=== PATIENT | male | born 1975 ===

== ENCOUNTER 2018-03-06 05:51 | Inpatient (IN) | payer OTHER ==
[2018-02-14 11:51] VITALS: BMI 27.4
--- NOTE | 2018-03-06 06:17 | HP ---
HISTORY OF PRESENT ILLNESS: This is a 42-year-old individual, injured in an on-job accident that occurred back in 06/2016. He fell off of the top of a printer landing on his back. Since then, he has been suffering severe low back pain. There is some radiation to the left buttock and occasionally into the popliteal fossa. He notes that increased sitting or walking, twisting, lifting exacerbate his pain. Valsalva maneuvers trigger his leg pain. He has a baseline level of pain as 7 on a 0 to 10 scale. PAST MEDICAL HISTORY: Otherwise negative. PAST SURGICAL HISTORY: No prior surgery. ALLERGIES: NONE. MEDICATION: Not taking any medication. SOCIAL HISTORY: No smoking. PHYSICAL EXAMINATION: NEUROLOGIC: He has 5/5 strength throughout. Sensory exam is grossly within normal limits. Straight leg raising is negative on the right; on the left, it produces typical buttock pain at 30 degrees. He has tenderness in the lower lumbar spine. His range of motion is normal in extension, but markedly limited flexion. Bilateral twisting is limited. His baseline gait is within normal limits. DIAGNOSTIC DATA: MRI of the LS spine documented very impressive annular tear at the L4-5 approximately 1 cm in length. The disc is collapsed and desiccated . He has a significant annular tear associated with a large left-sided herniation directly impacting the left S1 nerve root. I went over the situation with Mr. Ortiz over couple of office visits through a assisted living assistant. I went over the pathology of his MRI. He clearly has failed conservative treatment. We discussed the options microdiscectomy versus two-level fixation infusion. I went over the nature of the procedure and the rationale behind it, the details, potential risks, complications, realistic chance of excessive recovery time, long-term outlook. I answered all of his questions. He fully understood the above and elected to proceed with the two-level fixation infusion, which he is now being admitted for. Dennis Ventura MD
[2018-03-06] MEDS ORDERED: Absorbable Gelatin Sponge Size 100 ONE ×3 (07:24→08:36)
[2018-03-06] MEDS ORDERED: Bupivacaine HCl 0.5% PF (30 ml) Inj ONE (07:25)
[2018-03-06] MEDS ORDERED: cefTRIAXone IV 1 gm in Dextros 0 ML IVPB ONE (07:26)
[2018-03-06] MEDS ORDERED: Lidocaine/Epinephrine 1% 1:100000 10 ML IJ ONE (07:26)
[2018-03-06] MEDS ORDERED: Thrombin Topical 5,000 Int Units Spray Kit ONE (07:26)
[2018-03-06] MEDS ORDERED: Bacitracin 50,000 UNIT in Sodium Chloride 0.9% Irrig 1,000 ML IR SCH (07:30)
[2018-03-06] MEDS ORDERED: Propofol 10 mg/ml Inj (20 ML) ONE (07:33)
[2018-03-06] MEDS ORDERED: Midazolam 2 MG/2 ML VIAL ONE (07:33)
[2018-03-06] MEDS ORDERED: Bacitracin Ointment 30 GM TUBE ONE (07:35)
[2018-03-06] MEDS ORDERED: Succinylcholine Chloride 20 mg/ml Syr (5 ml) IV ONE (07:35)
[2018-03-06] MEDS ORDERED: Sodium Chloride 0.9% 20 ML IV ONE (07:35)
[2018-03-06] MEDS ORDERED: Propofol 10 mg/ml 1,000 MG/100 ML VIAL ONE ×3 (07:44→11:05)
[2018-03-06] MEDS ORDERED: ceFAZolin IV 1 gm in Dextrose 2 GM/100 ML BAG IVPB ONE (08:04)
[2018-03-06] MEDS: Bupivacaine Liposomal Inj 20 ml INFIL ONE ×2 (09:18→12:06)
[2018-03-06] MEDS ORDERED: HYDROmorphone 0.5 mg/0.5 ml ISec IVP PRN (12:57)
[2018-03-06] MEDS ORDERED: Lactated Ringer's 1,000 ML IV ONE ×2 (13:44→16:35)
--- NOTE | 2018-03-06 16:24 | RAD ---
PROCEDURE: HISTORY: As Above COMPARISON: None TECHNIQUE: Total fluoroscopic time utilized during the procedure: 54.2 seconds. Total dose 0.29566 mGy cm squared FINDINGS: Submitted images from the current procedure: 4 Please refer to the physician's notes performing the procedure. IMPRESSION: Less than 1 hour fluoroscopic time utilized during performance of the procedure
--- NOTE | 2018-03-06 18:50 | MRI ---
PROCEDURE: MR LUMBAR SPINE WITHOUT CONTRAST HISTORY: NUMBNESS OF CINTHYA LOWER EXTREMITIES COMPARISON: None available. TECHNIQUE: Multiecho multiplanar sequences were performed through the lumbar spine without the use of intravenous contrast. FINDINGS: Normal lumbar lordosis. Vertebral body heights are preserved. Marrow signal unremarkable. Conus medullaris appears normal in intrinsic signal terminating at at the level of L1. PA seen to be status post bilateral L4 and L5 laminectomies with transpedicular screws and interconnecting rods placed consecutively from L4-S1 inclusively. No interval spondylolisthesis with postoperative seroma/hematoma at the posterior paraspinal soft tissues at L4 and L5. Intervertebral fusion at L4-5 and L5-S1 is also apparent. Fluid compresses the thecal sac at the L4 and L5 levels [id number]. Note is made of intrathecal gas scattered from T12 down to the L4-5 level anteriorly as well as posteriorly. These foci are dark across all sequences and represent air in nondependent intrathecal locations including along the dorsal surface of the conus and filum terminale. Central canal is somewhat distorted by these gas bubbles but no bony or soft tissue related delete stenosis is appreciated overall the inferior T12 level down to S1. No significant neural foraminal stenosis as imaged. Transpedicular screws limit evaluation of the L4-L5 neural foramina somewhat, due to dephasing artifact. OTHER FINDINGS: None. IMPRESSION: Status post bilateral L4 and L5 laminectomies with intervertebral fusion L4 and L5. Postoperative changes are seen at the operative site impressing the thecal sac [id number] primarily at the L4-L5 levels. Multifocal intrathecal gas is identified variably in the visualized inferior thoracolumbar spinal canal without prominent epidural related stenosis appreciated. Please see discussion above. Follow-up clinical an CT or MRI recommended. Findings discussed with Dr. Ventura 03/06/2018 6:30 p.m..
[2018-03-07] MEDS: Lactated Ringer's 1,000 ML IV SCH ×5 (02:30→19:00)
[2018-03-07] MEDS ORDERED: Pneumococcal 23-Valent Vaccine IM ONE (10:20)
--- NOTE | 2018-03-07 14:36 | CP.PCM.PN ---
Subjective - Date & Time of Evaluation Date of Evaluation: 03/07/18 Time of Evaluation: 09:00 - Subjective Subjective: POD 1 ? 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 Objective - Vital Signs/Intake and Output Vital Signs (last 24 hours): Temp Pulse Resp BP Pulse Ox 98.0 F 77 18 103/63 99 03/07/18 10:17 03/07/18 12:33 03/07/18 10:17 03/07/18 10:17 03/07/18 12:33 Intake and Output: 03/07/18 03/07/18 06:59 18:59 Intake Total 2200 Output Total 1650 Balance 550 - Medications Medications: Current Medications Acetaminophen (Tylenol 325mg Tab) 650 mg PO Q6 PRN PRN Reason: Fever >100.4 F Docusate Sodium (Colace) 100 mg PO BID [facility] [place] Last Admin: 03/07/18 10:41 Dose: 100 mg Ferrous Sulfate (Feosol) 325 mg PO TID [facility] [place] Last Admin: 03/07/18 13:57 Dose: 325 mg Hydromorphone/Sodium Chloride (Dilaudid Clinical Sociologist) 6 mg IV Q4H PRN; Protocol PRN Reason: Pain, severe (8-10) Last Admin: 03/06/18 15:20 Dose: 6 mg Lactated Ringer's (Lactated Ringer's) 1,000 mls @ 100 mls/hr IV .Q10H [facility] [place] Last Admin: 03/07/18 13:52 Dose: 100 mls/hr Ondansetron HCl (Zofran Inj) 4 mg IVP Q8H PRN PRN Reason: Nausea/Vomiting Pneumococcal Polyvalent Vaccine (Pneumovax 23 Vaccine) 0.5 ml IM .ONCE ONE Stop: 03/08/18 12:01
[2018-03-08] MEDS: Lactated Ringer's 1,000 ML IV SCH ×3 (06:22→12:42)
--- NOTE | 2018-03-08 08:33 | OP ---
PROCEDURE DATE: 03/06/2018 PREOPERATIVE DIAGNOSIS: Lumbar disk derangement, L4-L5, L5-S1. POSTOPERATIVE DIAGNOSIS: Lumbar disk derangement, L4-L5, L5-S1. PROCEDURE: L4-L5, L5-S1 decompression, diskectomy, interbody fusion, segmental pedicle screw fixation and posterolateral fusion with iliac autograft. SURGEON: Dennis Ventura MD CO-SURGEON: Andre Steel MD ANESTHESIA: General endotracheal. ESTIMATED BLOOD LOSS: 500 mL, 250 mL returned via Cell Saver. COMPLICATIONS: None. JUSTIFICATION: The patient is status post a bad fall, ever since suffering with severe low back pain with radiating pain down both lower extremities. Imaging workup with MRI documented significant annular tear and herniation at both L4-L5 and L5-S1 level. He failed extensive conservative treatment. He was offered the possibility of operative intervention via diskectomy, fixation, and fusion, the nature of this procedure, the rationale behind it, alternatives, potential risks and complications, realistic chance of excessive recovery time were discussed with him at length. All his questions were answered. He fully understood all the above and elected to proceed as offered. DESCRIPTION OF PROCEDURE: The patient was taken to the operating room, hooked up to neurophysiological monitoring. He was carefully intubated, anesthetized. He was placed on the OR table in a prone position on a Samson frame. Care was taken to protect the face, eyes, endotracheal tube, and all bony prominences. The entire low back was first scrubbed with acetone and scrub, painted, and draped in usual sterile manner. Incision was localized with lateral fluoroscopy and traced out overlying the spinous processes of L3 down to the sacrum. After prepping and draping, the incision was made with a #10 blade knife, carried down to the level of the fascia. The Bovie cautery was used to strip the paraspinal muscles off the spinous processes and laminae of the L4-L5 and the sacrum. Confirmatory x-ray was taken. The exposure was widened out laterally bilaterally with the Bovie cautery and Hagen to expose the transverse process of L4-L5 as well as the sacral ala. Bleeding controlled throughout the Bovie cautery and thrombinated Gelfoam. At this point, attention was turned to bone graft harvestation. A 5-gauge trocar was directly inserted into the right superior posterior iliac crest, approximately 120 mL of bone marrow was aspirated. This was then spun down to obtain bone marrow mesenchymal cells, later used in the fusion. The decompression was begun with the Leksell rongeur removing the top of the sacral spinous process, the entire L5 spinous process and the inferior L4. L4 and L5 lamina were thinned down with the left pelvis bone was later used in the bone fusion. The Kerrison rongeur was used to perform a potential laminectomy to target the L5-S1 interspace, carrying it all the way to 5 the inferior half of four. This was then widened out laterally, bilaterally to perform generous medial facetectomy at the L4-L5 and L5-S1 bilaterally, again performed with a high-speed drill and various size Kerrison rongeurs. This was then widened up to expose the lateral disk as well as unroof the L5 and S1 nerve roots, the foramina. A foraminotomy was performed of the exiting L4 nerve roots bilaterally. Again, bleeding controlled with thrombinated padded Gelfoam and bipolar cautery. At this point, we begun the diskectomy on the left side of the L5-S1. The S1 nerve root gently retracted medially. Disk was incised grossly, and the disk material with the use of pituitary rongeurs, and various curettes. An 8 through 11-mm andres were used to remove all further disk material soft tissue and begin the decortication. We felt that the 11 violate the end plates. Large curettes were then used to complete the decortication. This identical procedure was then performed back on the right side, after which disk space was packed with bone-grafting material which included products of decompression, additional allograft impregnated with mesenchymal cell as well as collagen hydroxyapatite sponges impregnated with bone marrow mesenchymal cell. We then placed a 9 x 11 mm trapezoidal carbon-fiber fusion cage, filled with the bone-grafting material. We tapped into the interspace, it was well sunk. The identical graft was then placed back on the original left side. Digital inspection and lateral fluoroscopy confirmed good positioning and countersunk with both of the implants. At this point, we turned our attention to the L4-L5 level again. The left L5 nerve root was gently retracted medially. The disc was incised, and grossly adherent disc material with the use of pituitary rongeurs and curettes. Again, 8 to 11 mm andres were used. The end plates were decorticated. The identical procedure was performed on the right side, after which we packed the space with all bone grafting material and again placed a 9 x 11 cage and the identical cage then placed on the left side. Again visual inspection and lateral fluoroscopy confirmed excellent position of both of these implants. At this point, we used a high-speed drill to decorticate the lateral gutters which included the transverse process, lateral pars, lateral facet and sacral ala bilaterally. We turned our attention to placing the pedicular screws. The technique was used for visual inspection and lateral fluoroscopy guiding us to the pedicular entrance. The cortical surface was drilled, a gear shift passed down the barrel of the pedicle into the vertebral body. A ball-tip probe was used to sound the passage way to ensure there was no evidence of breach and the appropriate-sized screw was placed. Additionally, the gear shift and the screws were all stimulated with electrical current and no screw lower extremity EMG activity below the threshold milliamp level. Additionally, a final AP and lateral x-ray confirmed excellent position of all 6 screws. We used a 6 diameter screws of 40 to 45 mm length bilaterally at L4 and L5 and 7 diameter screws at length bilaterally at S1. At this point, we placed the appropriate size Titanium locking rods into the three screw head receptacles on each side. Locking nuts were then placed and torque-wrenched tight. We then placed the appropriate size cross connector and torque wrenched connectors and lastly placed all remaining bone graft into the lateral gutters packing it tightly to achieve the posterolateral effusion. At this point, we made sure there was no bone graft material or any foreign matter in and around the thecal sac. This was then covered with some thrombinated powdered Gelfoam, followed by solid Gelfoam. The muscle reapproximated using interrupted 0 Vicryl, the fascia closed using tight interrupted 0 Vicryl stitch, the paraspinal muscles and pituitary with some local anesthetic. The subcu closed in 2 separate layers with interrupted inverted 2-0 Vicryl and the skin closed with dougie, bacitracin ointment, and a self-adhering dressing was placed. The patient was turned back down to the supine position, evenly extubated, noted to be moving the lower extremities in the recovery room. All counts were correct. Somatosensory evoked potentials remained stable over the procedure. There were some very minor short burst of EMG activity while retracting the nerve but nothing sustained. No complications. Dennis Ventura MD
--- NOTE | 2018-03-08 09:33 | CP.PCM.PN ---
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 re arranging t to rehab Objective - Vital Signs/Intake and Output Vital Signs (last 24 hours): Temp Pulse Resp BP Pulse Ox 98.1 F 79 18 112/65 98 03/08/18 07:30 03/08/18 07:30 03/08/18 07:30 03/08/18 07:30 03/08/18 07:30 Intake and Output: 03/08/18 03/08/18 06:59 18:59 Intake Total 1950 Output Total 700 Balance 1250 - Medications Medications: Current Medications Acetaminophen (Tylenol 325mg Tab) 650 mg PO Q6 PRN PRN Reason: Fever >100.4 F Docusate Sodium (Colace) 100 mg PO BID [facility] Last Admin: 03/07/18 16:59 Dose: 100 mg Ferrous Sulfate (Feosol) 325 mg PO TID [facility] Last Admin: 03/07/18 16:59 Dose: 325 mg Hydromorphone/Sodium Chloride (Dilaudid Scrum Coach) 6 mg IV Q4H PRN; Protocol PRN Reason: Pain, severe (8-10) Last Admin: 03/07/18 16:11 Dose: 6 mg Lactated Ringer's (Lactated Ringer's) 1,000 mls @ 100 mls/hr IV .Q10H [facility] Last Admin: 03/08/18 06:22 Dose: Not Given Ondansetron HCl (Zofran Inj) 4 mg IVP Q8H PRN PRN Reason: Nausea/Vomiting Pneumococcal Polyvalent Vaccine (Pneumovax 23 Vaccine) 0.5 ml IM .ONCE ONE Stop: 03/08/18 12:01
[2018-03-08] MEDS ORDERED: Oxycodone/Acetaminophen 5/325 mg Tab PO PRN (11:45)
[2018-03-08] MEDS ORDERED: Pneumococcal 23-Valent Vaccine IM ONE (12:00)
[2018-03-08] MEDS: Bacitracin Ointment 30 GM TUBE TOP SCH (13:44)
[2018-03-08] MEDS: Oxycodone/Acetaminophen 5/325 mg Tab PO PRN (13:53)
[2018-03-08] MEDS: oxyCODONE 20 mg ER Tab (oxyCONTIN) PO SCH (17:41)
[2018-03-09] MEDS: Oxycodone/Acetaminophen 5/325 mg Tab PO PRN ×4 (02:34→21:34)
--- NOTE | 2018-03-09 06:40 | OP ---
PROCEDURE DATE: 03/06/2018 PREOPERATIVE DIAGNOSIS: Disc derangement with herniation L4-L5, L5-S1. POSTOPERATIVE DIAGNOSIS: Disc derangement with herniation L4-L5, L5-S1. OPERATION: 1. Posterior lumbar interbody and lateral fusion L4-L5, L5-S1. 2. Use of intervertebral devices. 3. Use of segmental spinal instrumentation. 4. Use of autograft by means of bone marrow aspiration. SURGEON: Andre Steel MD CO-SURGEON: Dennis Ventura MD. ANESTHESIA: General endotracheal tube intubation. DESCRIPTION OF PROCEDURE: The patient was brought to the operating room and general anesthesia was achieved. Spinal cord monitoring leads were placed throughout the patient's body while intravenous antibiotics were administered. Real time monitoring was done by a physician remotely as well as data center technician in the operating room. Sequential compression boots were placed on each of the patient's legs, and after the antibiotics were administered, a Castillo catheter was inserted. The patient was then gently transferred and placed on the operating table in the prone position on a Samson frame, keeping the abdomen free from pressure anteriorly. Care was taken to protect the elbows and knees from pressure points. A sterile drape was used to seal off the patient's peroneal region from the operative field, and his back was sterilely prepped and draped. The level of incision was noted under fluoroscopy and infiltrated with lidocaine with epinephrine. An incision was then made sharply in the midline and taken down through subcutaneous tissues using sharp and blunt dissection. Hemostasis was achieved with electrocautery. The fascia was divided and stripped back laterally off the spinous processes and lamina out to the level of the L4 and L5 transverse processes and the sacral ala on each side. Soft tissue attachments were cleared using Hagen elevation electrocautery so that we could identify the pars at each level on each side as well. Fluoroscopic views confirm we are at the appropriate levels. A Leksell rongeur was used to remove the spinous processes and thin down the lamina, and then the laminectomy carried out in a caudad and cephalad fashion. This was done in the midline first and then on each side, coming out laterally enough at the L4-L5 and L5-S1 disc to be able to safely pass the intervertebral devices. Foraminotomies were carried out until we could easily pass the Kaufman tool out each one on each side. Hemostasis was achieved with bipolar cautery as well as thrombinated Gelfoam powder. At that time, a trocar was placed in the posterior right ilium and 120 mL bone marrow aspirate was obtained. This was sterilely passed off to the data center technician who processed it to the harvest system and collected mesenchymal stem cells to the OR table. The stem cells were used to process through the IC chamber as well as "cubes and strips of Conform sponge." The IC chamber bone along with the patient's laminar bone and Optium putty were combined to create a bone grafting substrate. Thrombinated Gelfoam powder was used for hemostasis at the donor site. We then proceeded with the interbody fusion. The annulus was incised on the left side at L5-S1. A disc material removed with pituitary rongeur as well as the endplate andres up to and including a size 11. Ring and spoon curettes were used to remove any remaining tissue from the endplates. In similar fashion, the annulus on the right side was then incised and the remaining disc material removed using the andres and the pituitary rongeur along with the ring and spoon curettes. The bone grafting substrate was then packed into the disc space and a 9 x 11 cage packed with graft was tamped into place and countersunk. We then moved back to the left side and more bone grafting substrate and Conform cubes were placed into the disc space and another 9 x 11 cage with graft was tamped into place and countersunk. We then moved down to L4-L5 level where the same technique was used in terms of incising the annulus and removing disc material again using the pituitary rongeur and the endplate andres up to and including a size 11. Ring and spoon curettes were again used. We then moved to the right side and repeated the same technique until we are satisfied all disc material had been removed. The bone grafting substrate along with the marrow soak Conform cubes were packed into the disc space, and another 9 x 11 cage with graft was tamped into place. We then came back to the left side and put more bone graft with the Conform cubes into the disc space and another 9 x 11 cage packed with the graft was inserted and countersunk. Fluoroscopic view showed excellent position of the intervertebral devices. A high speed drill was then used to decorticate the L4-L5 and L5-S1 facet joints as well as the transverse processes at L4 and L5 along with sacral ala on each side. Under fluoroscopic guidance, the entry point for the right L4 screw was noted and a gearshift tool was used to create a channel through the pedicle. Once the bony integrity was confirmed with a ball tip probe, a 6 x 45 mm Expedium screw was inserted. Similar technique was used on the left side with the drill, gear shift tool, ball tip probe, and another 45 x 6 mm Expedium screw inserted. Stimulation of the gear shift tool on each side along with the shank and top of each screw revealed no electrophysiologic abnormalities. We then moved down to the L5 level, where again similar technique was used with fluoroscopic guidance with the drill and the gear shift tool. Once bony integrity was confirmed with ball tip probe, again 6 x 45 mm screws were inserted on each side, and again no electrophysiologic abnormalities were noted with stimulation. We then came down to the sacral level. A temporary charly was placed in the L4 and L5 screws on each side to ai off the best line of entry for the sacral screw. Fluoroscopy was then used to determine superior and inferior orientation of that and the drill was used to create the opening. The gear shift tool created the channel once more, and the bony integrity was confirmed, and 7 x 40 mm Expedium screws were placed on each side. Again stimulation revealed no abnormalities. A 65 mm pre-cut lordotic charly was used to connect the three screws on the left and 75 mm charly on the right. Caps were appropriately placed and tightened. The remaining bone grafting substrate was then placed lateral to the rods to bridge the decorticated surfaces of the transverse processes and sacral ala. The midline was then irrigated and inspected for any debris. Hemostasis achieved with thrombinated Gelfoam powder as well as bipolar cautery. A large piece of solid Gelfoam was used to cover the exposed neural elements. A #7 was then used to connect the two rods to add rotational stability. Final AP and lateral views showed excellent position of the hardware and intravertebral devices. The wound was then closed in layers with interrupted sutures of 0 Vicryl for the muscle and the fascia. The subcutaneous tissue was copiously irrigated with antibiotic solution. Exparel 40 mL which was 20 mL diluted with 20 mL of saline were injected in the paraspinal tissue to help with postoperative pain relief along with 20 mL of 0.5% Marcaine. The subcutaneous tissue was then closed in layers with interrupted suture of 2-0 Vicryl and the skin was approximated with dougie. Bacitracin ointment and sterile dressing were applied. The patient was transferred back onto his bed in the supine position. He was awakened and extubated. He was taken to recovery room in stable condition having tolerated the procedure well. He was actively moving all extremities and no permanent electrophysiologic abnormalities were noted at the end of the case. Estimated blood loss was 500 mL. He received 1500 mL of crystalloid during the procedure as well as 250 mL back from the Cell Saver. He had urine output of 400 mL for the operation. Andre Steel MD
[2018-03-09] MEDS: oxyCODONE 20 mg ER Tab (oxyCONTIN) PO SCH ×2 (09:44→18:14)
[2018-03-09] MEDS: Bacitracin Ointment 30 GM TUBE TOP SCH (09:46)
[2018-03-09] MEDS ORDERED: Magnesium Hydroxide Susp 30 ml UD PO ONE (13:33)
--- NOTE | 2018-03-09 13:33 | CP.PCM.PN ---
Subjective - Date & Time of Evaluation Date of Evaluation: 03/09/18 Time of Evaluation: 13:32 - Subjective Subjective: POD 3 doinq well no complaints amb in [facility] awaiting trans to rehab Objective - Vital Signs/Intake and Output Vital Signs (last 24 hours): Temp Pulse Resp BP Pulse Ox 99.3 F 75 18 108/67 96 03/09/18 07:00 03/09/18 07:00 03/09/18 07:00 03/09/18 07:00 03/09/18 07:00 Intake and Output: 03/09/18 03/09/18 06:59 18:59 Intake Total 500 Output Total 400 Balance 100 - Medications Medications: Current Medications Acetaminophen (Tylenol 325mg Tab) 650 mg PO Q6 PRN PRN Reason: Fever >100.4 F Bacitracin (Bacitracin) 1 gm TOP DAILY [facility] Last Admin: 03/09/18 09:46 Dose: 1 applic Docusate Sodium (Colace) 100 mg PO BID [facility] Last Admin: 03/09/18 09:43 Dose: 100 mg Ferrous Sulfate (Feosol) 325 mg PO TID [facility] Last Admin: 03/09/18 09:44 Dose: 325 mg Ondansetron HCl (Zofran Inj) 4 mg IVP Q8H PRN PRN Reason: Nausea/Vomiting Oxycodone HCl (Oxycontin Extended Release Tab) 20 mg PO BID [facility] Last Admin: 03/09/18 09:44 Dose: 20 mg Oxycodone/Acetaminophen (Percocet 5/325 Mg Tab) 1 tab PO Q4H PRN PRN Reason: Pain, moderate (4-7) Stop: 03/11/18 11:46 Last Admin: 03/08/18 21:54 Dose: 1 tab Oxycodone/Acetaminophen (Percocet 5/325 Mg Tab) 2 tab PO Q4H PRN PRN Reason: Pain, severe (8-10) Stop: 03/11/18 11:48 Last Admin: 03/09/18 07:59 Dose: 2 tab
[2018-03-09 17:05] VITALS: RESP 20
[2018-03-10] MEDS: Oxycodone/Acetaminophen 5/325 mg Tab PO PRN ×3 (05:20→21:56)
[2018-03-10] MEDS: oxyCODONE 20 mg ER Tab (oxyCONTIN) PO SCH ×2 (09:22→17:07)
[2018-03-10] MEDS: Bacitracin Ointment 30 GM TUBE TOP SCH (11:00)
[2018-03-11] MEDS: Oxycodone/Acetaminophen 5/325 mg Tab PO PRN (05:43)
[2018-03-11 08:27] VITALS: BP 112/64; TEMP 97.4; O2SAT 96
[2018-03-11] MEDS: Bacitracin Ointment 30 GM TUBE TOP SCH (09:01)
--- NOTE | 2018-03-11 09:06 | CP.PCM.PN ---
Subjective - Date & Time of Evaluation Date of Evaluation: 03/11/18 Time of Evaluation: 09:05 - Subjective Subjective: doing well amb with in halls yest requesting DC home as opposed to rehab at this time neuro intact wound C and D P dc f/u office next week Objective - Vital Signs/Intake and Output Vital Signs (last 24 hours): Temp Pulse Resp BP Pulse Ox 97.4 F L 75 20 112/64 96 03/11/18 07:00 03/11/18 07:00 03/11/18 07:00 03/11/18 07:00 03/11/18 07:00 Intake and Output: 03/11/18 03/11/18 06:59 18:59 Output Total 1800 Balance -1800 - Medications Medications: Current Medications Acetaminophen (Tylenol 325mg Tab) 650 mg PO Q6 PRN PRN Reason: Fever >100.4 F Bacitracin (Bacitracin) 1 gm TOP DAILY [facility] Last Admin: 03/11/18 09:01 Dose: 1 applic Docusate Sodium (Colace) 100 mg PO BID [facility] Last Admin: 03/11/18 08:59 Dose: 100 mg Ferrous Sulfate (Feosol) 325 mg PO TID [facility] Last Admin: 03/11/18 08:59 Dose: 325 mg Ondansetron HCl (Zofran Inj) 4 mg IVP Q8H PRN PRN Reason: Nausea/Vomiting Oxycodone HCl (Oxycontin Extended Release Tab) 20 mg PO BID [facility] Last Admin: 03/10/18 17:07 Dose: 20 mg Oxycodone/Acetaminophen (Percocet 5/325 Mg Tab) 1 tab PO Q4H PRN PRN Reason: Pain, moderate (4-7) Stop: 03/11/18 11:46 Last Admin: 03/08/18 21:54 Dose: 1 tab Oxycodone/Acetaminophen (Percocet 5/325 Mg Tab) 2 tab PO Q4H PRN PRN Reason: Pain, severe (8-10) Stop: 03/11/18 11:48 Last Admin: 03/11/18 05:43 Dose: 2 tab
[2018-03-11 11:54] VITALS: PULSE 72
== END 2018-03-11 11:00 | disposition home or self-care (01) | DRG 460 ==
LOC: C.9S 05:51 → C.6T 18:10
PROVIDERS: ADMIT Neurological Surgery; ATTEND Neurological Surgery
PROC: 0SB20ZZ Excision of Lumbar Vertebral Disc, Open Approach (ICD-10-PCS; 2018-03-06)
PROC: 0QB20ZZ Excision of Right Pelvic Bone, Open Approach (ICD-10-PCS; 2018-03-06)
PROC: 0SG10AJ Fusion of 2 or more Lumbar Vertebral Joints with Interbody Fusion Device, Posterior Approach, Anterior Column, Open Approach (ICD-10-PCS; principal; 2018-03-06 07:45)
DX: M51.26 Other intervertebral disc displacement, lumbar region (principal)